=== PATIENT | female | born 1945 | race Caucasian/White ===

== ENCOUNTER → 2016-06-23 | Outpatient (CLI) | payer MEDICARE, OTHER ==
[2016-05-12 20:45] VITALS: BP 142/58
--- NOTE | 2016-06-23 12:41 | RAD ---
Chest, 2 views, 06/23/2016: History: URI Comparison is made to a study from 06/17/2016. The heart is mildly enlarged. The pulmonary vascularity is normal. No pulmonary infiltrates are seen. There is no evidence of pleural fluid. Moderate hypertrophic spurring is present in the spine. IMPRESSION: 1. Mild cardiomegaly. 2. No acute abnormality is detected.
== END | disposition home or self-care (01) ==
LOC: DXRADRC 09:56
PROVIDERS: ATTEND General Practice
DX: J06.9 Acute upper respiratory infection, unspecified (principal); I51.7 Cardiomegaly
CPT/HCPCS: 71020

== ENCOUNTER → 2016-08-12 | Outpatient (CLI) | payer MEDICARE, OTHER ==
[2016-05-12 20:45] VITALS: BP 142/58
--- NOTE | 2016-08-12 09:56 | RAD ---
Indication persistent pain associated with a fall one week previously. A single view of the chest was obtained as well as films targeted to right ribs. Comparison is made to a plain film examination of the chest 06/23/2016. Heart size and pulmonary vessels are normal. The lungs are clear of acute infiltrates. There is no pleural fluid or pneumothorax. No acute or significant finding is seen on plain films of the right ribs. IMPRESSION: No acute finding in the chest. Normal plain films right ribs
== END | disposition home or self-care (01) ==
LOC: DXRADRC 09:34
PROVIDERS: ATTEND Physician Assistant
DX: R07.81 Pleurodynia (principal); W19.XXXD Unspecified fall, subsequent encounter
CPT/HCPCS: 71101

== ENCOUNTER → 2016-09-24 | Outpatient (CLI) | payer MEDICARE, OTHER ==
[2016-05-12 20:45] VITALS: BP 142/58
--- NOTE | 2016-09-24 14:50 | RAD ---
Chest, 2 views, 09/24/2016: History: Fever, productive cough Comparison is made to a study from 06/23/2016. The heart is mildly enlarged. The pulmonary vascularity appears to be within normal limits. There is mild infiltrate posteriorly in the lower chest as seen on the lateral view. This probably lies on the right. The upper lung garza are clear. No significant volume of pleural fluid is identified. There is moderate spurring in the spine. IMPRESSION: 1. Mild unchanged cardiomegaly. 2. Right basilar infiltrate suggesting pneumonia.
== END | disposition home or self-care (01) ==
LOC: DXRADRC 10:40
PROVIDERS: ATTEND Nurse Practitioner Family
DX: J45.909 Unspecified asthma, uncomplicated (principal); I51.7 Cardiomegaly; Z87.891 Personal history of nicotine dependence
CPT/HCPCS: 71020

== ENCOUNTER → 2018-02-23 | Outpatient (CLI) | payer MEDICARE, OTHER ==
[2016-05-12 20:45] VITALS: BP 142/58
--- NOTE | 2018-02-24 09:05 | RAD ---
DATE: 02/23/2018 12:30 PM EXAM: DIGITAL SCREEN BILAT W/CAD HISTORY: routine screening evaluation. COMPARISON: None available Bilateral full field craniocaudal and mediolateral oblique images were obtained using digital technique. This study was interpreted with the benefit of Computerized Aided Detection (CAD ). Breast Density: The breast parenchyma shows scattered fibroglandular densities. Breast parenchyma level B. FINDINGS: Benign calcifications are present. No suspicious masses, microcalcifications or architectural distortion is present to suggest malignancy in either breast. The visualized axillae are unremarkable. IMPRESSION: No mammographic evidence of malignancy. BI-RADS CATEGORY: 2 BENIGN FINDING(S) RECOMMENDED FOLLOW-UP: 12M 12 MONTH FOLLOW-UP Annual screening mammography is recommended, unless clinically indicated sooner based on symptoms or change in physical exam. PQRS compliance statement: Patient information was entered into a reminder system with a target due date 02/24/2019 for the next mammogram. Mammography is a sensitive method for finding small breast cancers, but it does not detect them all and is not a substitute for careful clinical examination. A negative mammogram does not negate a clinically suspicious finding and should not result in delay in biopsying a clinically suspicious abnormality. "Our facility is accredited by the [employer] Mammography Program." MTDD
== END | disposition home or self-care (01) ==
LOC: MAMMO 10:40
PROVIDERS: ATTEND Neuromusculoskeletal Medicine & OMM
DX: Z12.31 Encounter for screening mammogram for malignant neoplasm of breast (principal)
CPT/HCPCS: 77067

== ENCOUNTER → 2018-03-23 | Outpatient (CLI) | payer MEDICARE, OTHER ==
[2016-05-12 20:45] VITALS: BP 142/58
--- NOTE | 2018-03-23 13:18 | RAD ---
Indication:RIGHT FOOT PAIN AFTER DROPPING A GLASS BOWL ON IT LAST NIGHT TECHNIQUE: 3 views of the right foot COMPARISON:None FINDINGS: No acute fracture or destructive lesion. 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 No soft tissue swelling. Small plantar calcaneal spur. IMPRESSION: No acute findings. Electronically signed by: Domenico Mccarty DO (03/23/2018 1:14 PM) [facility] [place]
== END | disposition home or self-care (01) ==
LOC: PMG 11:06
PROVIDERS: ATTEND Registered Nurse
DX: M19.071 Primary osteoarthritis, right ankle and foot (principal); M77.31 Calcaneal spur, right foot; M24.674 Ankylosis, right foot
CPT/HCPCS: 73630

== ENCOUNTER → 2018-06-02 | Outpatient (CLI) | payer MEDICARE, OTHER ==
[2016-05-12 20:45] VITALS: BP 142/58
--- NOTE | 2018-06-02 17:06 | RAD ---
Left femur, 2 views, 06/02/2018: HISTORY: Leg pain following amputation Since the knee exam of 01/18/2017 there has been a [id number] amputation. There is patchy bony demineralization. There appears to be a small amount of residual cement within the medullary cavity of the stump related to a prior knee prosthesis. There is callus formation at the stump. There are faint scattered calcifications in the soft tissues adjacent to the stump. No definite bone destruction is seen. There is moderate soft tissue swelling. IMPRESSION: Postsurgical changes as described above without definite evidence of osteomyelitis. Electronically signed by: Aly Packer MD (06/02/2018 5:03 PM) [facility]
== END | disposition home or self-care (01) ==
LOC: PMG 14:37
PROVIDERS: ATTEND Registered Nurse
DX: M25.775 Osteophyte, left foot (principal); R22.42 Localized swelling, mass and lump, left lower limb; Z98.890 Other specified postprocedural states
CPT/HCPCS: 73552